=== PATIENT | male | born 2005 | race Hispanic/Latino ===

== ENCOUNTER 2025-06-25 22:22 | Emergency (ER) | payer SELFPAY | END 2025-06-25 23:43 | disposition home or self-care (01) | LOC: ERS 22:22 | DX: S93.401A Sprain of unspecified ligament of right ankle, initial encounter (principal); X50.9XXA Other and unspecified overexertion or strenuous movements or postures, initial encounter; Y93.9 Activity, unspecified | CPT/HCPCS: 93005; 99283 ==